=== PATIENT | male | born 1980 | race Caucasian/White ===

== ENCOUNTER 2018-10-30 18:16 | Inpatient (IN) | payer BC ==
[2018-10-30 18:16] VITALS: BMI 32.1
[2018-10-30] MEDS ORDERED: Magnesium Sulfate 2 GM in Sodium Chloride 0.9% 100 ML IVPB ONE (18:36)
[2018-10-30] MEDS ORDERED: Magnesium Sulfate 2 gm/50 ml 2 GM/50 ML BAG IV ONE (18:45)
[2018-10-30] MEDS: Albuterol-Ipratrop 3 mg / 0.5 (3 ml) UD IH SCH ×3 (18:45→19:49)
[2018-10-30 19:19] LABS: BASO # 0.04 K/mm3 (0.0-2.0); BASO % 0.5 % (0.0-3.0); EOS # 0.3 (0.0-0.7); EOS % 3.5 % (1.5-5.0); GRAN # 5.23 (1.4-6.5); GRAN % 64.6 % (50.0-68.0); HEMOGLOBIN 14.2 g/dL (14.0-18.0); LYMPH # 2.1 (1.2-3.4); LYMPH % 25.7 % (22.0-35.0); MEAN CORPUSCULAR HEMOGLOBIN 31.1 pg (25.0-35.0); MEAN PLATELET VOLUME 10.2 fl (7.0-11.0); MONO # 0.5 (0.1-0.6); MONO % 5.7 % (1.0-6.0); RBC 4.56 10^6/uL (3.5-6.1); RED CELL DISTRIBUTION WIDTH 12.5 % (11.5-14.5); WHITE BLOOD COUNT 8.1 10^3/uL (4.5-11.0)
[2018-10-30 19:22] LABS: ALB/GLOB RATIO 1.1 (1.1-1.8); ALBUMIN 4.6 g/dL (3.0-4.8); ALT/SGPT 81 U/L (7-56); AST/SGOT 65 U/L (17-59); BLOOD UREA NITROGEN 15 mg/dL (7-21); CALCIUM 9.9 mg/dL (8.4-10.5); GFR NON-AFRICAN AMERICAN > 60
[2018-10-30] MEDS ORDERED: cefTRIAXone 1 gm 1 GM/100 ML BAG IVPB STA (20:25)
[2018-10-30] MEDS ORDERED: Azithromycin 500MG/NS 250ml 500 MG/250 ML BAG IVPB STA (20:25)
[2018-10-30] MEDS ORDERED: Albuterol-Ipratrop 3 mg / 0.5 (3 ml) UD IH STA (20:50)
--- NOTE | 2018-10-30 20:56 | ED PDOC ---
Arrival/HPI - General Chief Complaint: Shortness Of Breath Time Seen by Provider: 10/30/18 18:23 Historian: Patient - History of Present Illness Narrative History of Present Illness (Text): 10/30/18 20:54 38 yo M w/ PMH of HTN, was a former smoker, currently vapes, is c/o cough, SOB and chest tightness. States that he completed a full course of tamiflu after being initially diagnosed with the flu, however he continued to have cough, he went back to [facility], where he was initially treated, an oupt CXR was done, which confirmed that he had pneumonia and was Rx levaquin, which he has been taking x 4 days without improvement. Today he felt significant SOB prompting ER visit. Denies any fevers, chills, recent travel, N/V. PMD none Past Medical History - Tetanus Immunization Tetanus Immunization: Unknown - Cardiac Hx Hypertension: Yes (wt and diet management) - Psychiatric Hx Depression: No Hx Emotional Abuse: No Hx Physical Abuse: No Hx Substance Use: No - Anesthesia Hx Anesthesia: No Hx Anesthesia Reactions: No Hx Malignant Hyperthermia: No - Suicidal Assessment Feels Threatened In Home Enviroment: No Family/Social History Family/Social History: No Known Family HX Smoking Status: Smoker Currrent Status Unknown Hx Alcohol Use: Yes Hx Substance Use: No Hx Substance Use Treatment: No Allergies/Home Meds Allergies/Adverse Reactions: Allergies No Known Allergies Allergy (Verified 10/15/14 17:15) Review of Systems - Review of Systems Constitutional: absent: Fatigue, Fevers Respiratory: SOB, Cough, Wheezing Cardiovascular: Chest Pain. absent: Palpitations Gastrointestinal: absent: Abdominal Pain, Diarrhea, Nausea, Vomiting Genitourinary Male: absent: Dysuria, Frequency Musculoskeletal: absent: Arthralgias, Back Pain Skin: absent: Rash, Skin Lesions Physical Exam Vital Signs Temp Pulse Resp BP Pulse Ox 10/30/18 19:20 97.6 F 80 18 147/82 100 10/30/18 18:22 19 10/30/18 18:16 98.2 F 76 18 153/92 H 100 Temperature: Afebrile Blood Pressure: Normal Pulse: Regular Respiratory Rate: Normal Appearance: Positive for: Well-Appearing, Non-Toxic, Other (+mild resp distress) Pain Distress: None Mental Status: Positive for: Alert and Oriented X 3 - Systems Exam Head: Present: Atraumatic, Normocephalic Pupils: Present: PERRL Extroacular Muscles: Present: EOMI Conjunctiva: Present: Normal Mouth: Present: Moist Mucous Membranes Neck: Present: Normal Range of Motion Respiratory/Chest: Present: Clear to Auscultation, Good Air Exchange, Respiratory Distress (+mild resp distress with mild labored breathing), Wheezes (+b/l inspiratory and expiratory wheezing), Rhonchi (+scattered rhonchi). No: Accessory Muscle Use Cardiovascular: Present: Regular Rate and Rhythm, Normal S1, S2. No: Murmurs Abdomen: No: Tenderness, Distention, Peritoneal Signs Back: Present: Normal Inspection Upper Extremity: Present: Normal Inspection. No: Cyanosis, Edema Lower Extremity: Present: Normal Inspection. No: Edema Neurological: Present: GCS=15, CN II-XII Intact, Speech Normal, Motor Func Grossly Intact, Normal Sensory Function Skin: Present: Warm, Dry, Normal Color. No: Rashes Psychiatric: Present: Alert, Oriented x 3, Normal Insight, Normal Concentration Medical Decision Making ED Course and Treatment: 10/30/18 20:57 Plan: -- Labs -- IV fluids -- EKG -- CXR -- Solumedrol IV / Mg IV -- Duoneb x3 -- Reassess and disposition CXR : +RLL infiltrate, as read by PA EKG: NSR at 88 bpm, (-) acute ST changes, as read by PA. Labs reviewed and within normal limits. On reevaluation, patient resting in bed comfortably, breathing is easy and unlabored. On exam, patient remains awake alert and oriented 3 in no acute distress. Neck is supple, lungs still with b/l expiratory wheezing, +tachycardic. Given another duoneb, CXR and labs d/w the patient. Diagnosis of pneumonia with failed outpatient treatment d/w the patient, advised that he will need to be admitted which he agrees with. Case d/w Dr. Bravo, agrees with plan, request Dr. Blackmon for ID consult. - Lab Interpretations Lab Results: 10/30/18 18:55 10/30/18 18:55 Lab Results 10/30/18 18:55: Sodium 140, Potassium 4.4, Chloride 102, Carbon Dioxide 27, Anion Gap 16, BUN 15, Creatinine 1.1, Est GFR ( Amer) > 60, Est GFR (Non- Af Amer) > 60, Random Glucose 99, Calcium 9.9, Magnesium 1.8, Total Bilirubin 0.5, AST 65 H, ALT 81 H, Alkaline Phosphatase 116, Total Protein 8.8 H, Albumin 4.6, Globulin 4.2, Albumin/Globulin Ratio 1.1 10/30/18 18:55: WBC 8.1, RBC 4.56, Hgb 14.2, Hct 40.6 L, MCV 89.0, MCH 31.1, MCHC 35.0, RDW 12.5, Plt Count 363, MPV 10.2, Gran % 64.6, Lymph % (Auto) 25.7, [place] % (Auto) 5.7, Eos % (Auto) 3.5, Baso % (Auto) 0.5, Gran # 5.23, Lymph # (Auto) 2.1, [place] # (Auto) 0.5, Eos # (Auto) 0.3, Baso # (Auto) 0.04 - RAD Interpretation Radiology Orders: 10/30/18 18:34 CHEST TWO VIEWS (PA/LAT) [RAD] Stat - Medication Orders Current Medication Orders: Albuterol/Ipratropium (Duoneb 3 Mg/0.5 Mg (3 Ml) Ud) 3 ml IH STAT STA Stop: 10/30/18 20:51 Ceftriaxone Sodium (Rocephin 1 Gram Ivpb) 1 gm in 100 mls @ 200 mls/hr IVPB STAT STA; Protocol Stop: 10/30/18 20:54 Azithromycin (Zithromax 500mg In Ns) 500 mg in 250 mls @ 167 mls/hr IVPB STAT STA; Protocol Stop: 10/30/18 21:54 Discontinued Medications Albuterol/Ipratropium (Duoneb 3 Mg/0.5 Mg (3 Ml) Ud) 3 ml IH Q15M [facility] Stop: 10/30/18 19:16 Last Admin: 10/30/18 19:49 Dose: 3 ml Magnesium Sulfate (Magnesium Sulfate 2 Gm/50 Ml Water) 2 gm in 50 mls @ 102 mls/hr IV ONCE ONE Stop: 10/30/18 19:14 Last Admin: 10/30/18 19:49 Dose: 102 mls/hr eMAR Start Stop Document 10/30/18 19:49 RG (Rec: 10/30/18 19:49 RG [id number]) Intravenous Solution Start Date 10/30/18 Start Time 19:49 Methylprednisolone (Solu-Medrol) 125 mg IVP STAT STA Stop: 10/30/18 18:35 Last Admin: 10/30/18 19:04 Dose: 125 mg IVP Administration Document 10/30/18 19:04 [email or web address] (Rec: 10/30/18 19:04 [email or web address] [id number]) Charges for Administration # of IVP Administrations 1 - PA / PROCESS WORKER / Resident Statement MD/DO has reviewed & agrees with the documentation as recorded. Disposition/Present on Arrival - Present on Arrival Any Indicators Present on Arrival: No History of DVT/PE: No History of Uncontrolled Diabetes: No Urinary Catheter: No History of Decub. Ulcer: No History Surgical Site Infection Following: None - Disposition Have Diagnosis and Disposition been Completed?: Yes Diagnosis: Pneumonia, Asthma Disposition: HOSPITALIZED Disposition Time: 20:30 Patient Plan: Admission Condition: STABLE
[2018-10-31] MEDS ORDERED: Albuterol-Ipratrop 3 mg / 0.5 (3 ml) UD IH ONE (07:18)
--- NOTE | 2018-10-31 09:26 | CARD ---
APPROVED REPORT Date of service: 10/30/2018 EKG Measurement Heart [id number] <Conclusion> Normal sinus rhythm Normal ECG
[2018-10-31] MEDS: Dextrose 5%/0.45% NS 1,000 ML IV SCH (10:52)
[2018-10-31] MEDS: cefTRIAXone 1 gm 1 GM/100 ML BAG IVPB SCH (10:53)
--- NOTE | 2018-10-31 11:34 | RAD ---
Date of service: 10/30/2018 HISTORY: Cough COMPARISON: 08/09/2018. TECHNIQUE: Chest PA and lateral FINDINGS: LUNGS: Right lower lobe infiltrate consistent with pneumonia. This was not apparent on the prior study. PLEURA: No significant pleural effusion identified. No pneumothorax apparent. CARDIOVASCULAR: No aortic atherosclerotic calcification present. Normal cardiac size. No pulmonary vascular congestion. OSSEOUS STRUCTURES: No significant abnormalities. VISUALIZED UPPER ABDOMEN: Normal. OTHER FINDINGS: None. IMPRESSION: Right lower lobe infiltrate likely acute pneumonia.
[2018-10-31] MEDS: Azithromycin 500MG/NS 250ml 500 MG/250 ML BAG IVPB SCH (12:28)
[2018-10-31] MEDS: Levalbuterol 0.63 MG/3 ML Inhal Soln UD IH SCH ×2 (13:09→21:00)
[2018-10-31] MEDS: Simethicone 80 mg Chewtab PO SCH ×2 (13:47→21:57)
--- NOTE | 2018-10-31 17:17 | US ---
Date of service: 10/31/2018 HISTORY: Gallbladder polyp COMPARISON: 05/06/2012 TECHNIQUE: Sonographic evaluation of the abdomen. FINDINGS: LIVER: Measures 14.2 cm. Hepatopedal blood flow. Fatty infiltration manifest ultrasonographically as increased echogenicity of the liver parenchyma. No mass. No intrahepatic bile duct dilatation. GALLBLADDER: Unremarkable. No gallstones. COMMON BILE DUCT: Measures 4.2 mm. No stones. No dilatation. PANCREAS: Obscured by overlying bowel gas. Non diagnostic assessment of the pancreas RIGHT KIDNEY: Measures 5.4 x 10.3cm. Normal echogenicity. No calculus, mass, or hydronephrosis. LEFT KIDNEY: Measures 6.2 x 11.0cm. Normal echogenicity. No calculus, mass, or hydronephrosis. SPLEEN: Normal in size and contour. No mass. AORTA: No aneurysmal dilatation. IVC: Unremarkable. OTHER FINDINGS: None. IMPRESSION: Unremarkable abdominal sonogram.No significant interval change compared to the prior examination(s).
--- NOTE | 2018-10-31 17:21 | CP.PCM.CON ---
History of Present Illness - History of Present Illness History of Present Illness: Infectious Disease Consultation: October 31, 2018 38 yo male with PMHx of HTN presenting with cough and SOB as well as chest tightness. The patient recently completed Tamiflu course and had taken 4 days of Levaquin. There is no leukocytosis. He has been afebrile. Chest X-ray in the right lower lobe likely pneumonia. PMHx: HTN PSHx: none given Allergies: NKDA Social Hx: No illicit drug use Positive tobacco and EtOH use Active Medications Acetaminophen (Tylenol 325mg Tab) 650 mg PO Q6H PRN PRN Reason: Fever >100.4 F Guaifenesin/Dextromethorphan (Robitussin Dm) 10 ml PO Q4H PRN PRN Reason: Cough Dextrose/Sodium Chloride (Dextrose 5%/0.45% Ns 1000 Ml) 1,000 mls @ 100 mls/hr IV .Q10H [facility] Last Admin: 10/31/18 10:52 Dose: 100 mls/hr Ceftriaxone Sodium (Rocephin 1 Gram Ivpb) 1 gm in 100 mls @ 100 mls/hr IVPB DAILY [facility]; Protocol Last Admin: 10/31/18 10:53 Dose: 100 mls/hr Azithromycin (Zithromax 500mg In Ns) 500 mg in 250 mls @ 167 mls/hr IVPB DAILY [facility]; Protocol Last Admin: 10/31/18 12:28 Dose: 167 mls/hr Levalbuterol HCl (Xopenex) 0.63 mg IH TIDRESP [facility] Last Admin: 10/31/18 13:09 Dose: 0.63 mg Methylprednisolone (Solu-Medrol) 60 mg IVP Q12 [facility] Ondansetron HCl (Zofran Inj) 4 mg IVP Q6H PRN PRN Reason: Nausea/Vomiting Simethicone (Mylicon Chew Tab) 120 mg PO Q8 [facility] Last Admin: 10/31/18 13:47 Dose: 120 mg Family Hx: none given ROS: No fevers, chills, nausea, vomiting, diarrhea, headaches, dizziness, chest pain, abdominal pain, melena, hematuria, hematemesis, hematochezia, depression, anxiety Patient with SOB, cough Past Patient History - Tetanus Immunizations Tetanus Immunization: Unknown - Past Social History Smoking Status: Smoker Currrent Status Unknown - CARDIAC Hx Hypertension: Yes (wt and diet management) - MUSCULOSKELETAL/RHEUMATOLOGICAL Hx Falls: No - PSYCHIATRIC Hx Depression: No Hx Emotional Abuse: No Hx Physical Abuse: No Hx Substance Use: No - SURGICAL HISTORY Hx Cardiac Catheterization: No Hx Coronary Stent: No - ANESTHESIA Hx Anesthesia: No Hx Anesthesia Reactions: No Hx Malignant Hyperthermia: No Meds Allergies/Adverse Reactions: Allergies Allergy/AdvReac Type Severity Reaction Status Date / Time No Known Allergies Allergy Verified 10/15/14 17:15 - Medications Medications: Current Medications Acetaminophen (Tylenol 325mg Tab) 650 mg PO Q6H PRN PRN Reason: Fever >100.4 F Guaifenesin/Dextromethorphan (Robitussin Dm) 10 ml PO Q4H PRN PRN Reason: Cough Dextrose/Sodium Chloride (Dextrose 5%/0.45% Ns 1000 Ml) 1,000 mls @ 100 mls/hr IV .Q10H [facility] Last Admin: 10/31/18 10:52 Dose: 100 mls/hr Ceftriaxone Sodium (Rocephin 1 Gram Ivpb) 1 gm in 100 mls @ 100 mls/hr IVPB DAILY [facility]; Protocol Last Admin: 10/31/18 10:53 Dose: 100 mls/hr Azithromycin (Zithromax 500mg In Ns) 500 mg in 250 mls @ 167 mls/hr IVPB DAILY [facility]; Protocol Last Admin: 10/31/18 12:28 Dose: 167 mls/hr Levalbuterol HCl (Xopenex) 0.63 mg IH TIDRESP [facility] Last Admin: 10/31/18 13:09 Dose: 0.63 mg Methylprednisolone (Solu-Medrol) 60 mg IVP Q12 [facility] Ondansetron HCl (Zofran Inj) 4 mg IVP Q6H PRN PRN Reason: Nausea/Vomiting Simethicone (Mylicon Chew Tab) 120 mg PO Q8 [facility] Last Admin: 10/31/18 13:47 Dose: 120 mg Physical Exam - Constitutional Appears: Non-toxic, No Acute Distress - Head Exam Head Exam: ATRAUMATIC, NORMOCEPHALIC - Eye Exam Eye Exam: EOMI, PERRL Pupil Exam: NORMAL ACCOMODATION, PERRL - ENT Exam ENT Exam: Mucous Membranes Moist, Normal External Ear Exam, TM's Normal Bilaterally - Neck Exam Neck exam: Positive for: Full Rom, Normal Inspection - Respiratory Exam Respiratory Exam: Decreased Breath Sounds, Rhonchi, Wheezes, NORMAL BREATHING PATTERN. absent: Rales - Cardiovascular Exam Cardiovascular Exam: REGULAR RHYTHM, RRR, +S1, +S2 - GI/Abdominal Exam GI & Abdominal Exam: Normal Bowel Sounds, Soft. absent: Distended, Tenderness - Extremities Exam Extremities exam: Positive for: full ROM, normal inspection - Neurological Exam Neurological exam: Alert, CN II-XII Intact, Oriented x3 - Psychiatric Exam Psychiatric exam: Normal Affect, Normal Mood - Skin Skin Exam: Intact, Normal Color Results - Vital Signs Recent Vital Signs: Last Vital Signs Temp 97.9 F 10/31/18 14:00 Pulse 81 10/31/18 14:00 Resp 18 10/31/18 14:00 BP 141/89 10/31/18 14:00 Pulse Ox 95 10/31/18 14:00 - Labs Result Diagrams: 10/30/18 18:55 10/30/18 18:55 Labs: Laboratory Results - last 24 hr 10/30/18 10/30/18 18:55 18:55 WBC 8.1 RBC 4.56 Hgb 14.2 Hct 40.6 L MCV 89.0 MCH 31.1 MCHC 35.0 RDW 12.5 Plt Count 363 MPV 10.2 Gran % 64.6 Lymph % (Auto) 25.7 [place] % (Auto) 5.7 Eos % (Auto) 3.5 Baso % (Auto) 0.5 Gran # 5.23 Lymph # (Auto) 2.1 [place] # (Auto) 0.5 Eos # (Auto) 0.3 Baso # (Auto) 0.04 Sodium 140 Potassium 4.4 Chloride 102 Carbon Dioxide 27 Anion Gap 16 BUN 15 Creatinine 1.1 Est GFR ( Amer) > 60 Est GFR (Non-Af Amer) > 60 Random Glucose 99 Calcium 9.9 Magnesium 1.8 Total Bilirubin 0.5 AST 65 H ALT 81 H Alkaline Phosphatase 116 Total Protein 8.8 H Albumin 4.6 Globulin 4.2 Albumin/Globulin Ratio 1.1 Assessment & Plan - Assessment and Plan (Free Text) Assessment: 38 yo male with recent treatment for Influenza with Tamiflu and was on Levaquin for pneumonia (day 4 of treatment). Came to [facility] for worsening cough and SOB. Started on Rocephin and Azithromycin for treatment. Check procalcitonin values. Supportive care. Chest X-ray reviewed showing a right lower lobe pneumonia. Thank you for allowing me to participate in the care of the patient, we will follow with you.
[2018-10-31] MEDS: guaiFENesin DM 200 mg-20 mg/10 ml UD PO PRN (21:57)
[2018-11-01] MEDS: Levalbuterol 0.63 MG/3 ML Inhal Soln UD IH PRN (03:41)
[2018-11-01] MEDS: guaiFENesin DM 200 mg-20 mg/10 ml UD PO PRN ×2 (05:24→09:45)
[2018-11-01] MEDS: Simethicone 80 mg Chewtab PO SCH ×3 (05:24→21:08)
[2018-11-01] MEDS: Levalbuterol 0.63 MG/3 ML Inhal Soln UD IH SCH ×3 (07:48→21:50)
[2018-11-01] MEDS: cefTRIAXone 1 gm 1 GM/100 ML BAG IVPB SCH (09:46)
[2018-11-01] MEDS: Azithromycin 500MG/NS 250ml 500 MG/250 ML BAG IVPB SCH (11:18)
[2018-11-01] MEDS: Dextrose 5%/0.45% NS 1,000 ML IV SCH (13:09)
--- NOTE | 2018-11-01 13:17 | CP.PCM.PN ---
Subjective - Date & Time of Evaluation Date of Evaluation: 11/01/18 Time of Evaluation: 12:15 - Subjective Subjective: Infectious Disease Follow Up: November 01, 2018 38 yo male with PMHx of HTN presenting with cough and SOB as well as chest tightness. The patient recently completed Tamiflu course and had taken 4 days of Levaquin. There is no leukocytosis. He has been afebrile. Chest X-ray in the right lower lobe likely pneumonia. Feeling slightly better. Objective - Vital Signs/Intake and Output Vital Signs (last 24 hours): Temp Pulse Resp BP Pulse Ox 98.5 F 76 20 133/81 95 11/01/18 07:00 11/01/18 07:00 11/01/18 07:00 11/01/18 07:00 11/01/18 07:00 Intake and Output: 11/01/18 11/01/18 06:59 18:59 Intake Total 360 Balance 360 - Medications Medications: Current Medications Acetaminophen (Tylenol 325mg Tab) 650 mg PO Q6H PRN PRN Reason: Fever >100.4 F Guaifenesin/Dextromethorphan (Robitussin Dm) 10 ml PO Q4H PRN PRN Reason: Cough Last Admin: 11/01/18 09:45 Dose: 10 ml Dextrose/Sodium Chloride (Dextrose 5%/0.45% Ns 1000 Ml) 1,000 mls @ 100 mls/hr IV .Q10H [facility] Last Admin: 11/01/18 13:09 Dose: 100 mls/hr Ceftriaxone Sodium (Rocephin 1 Gram Ivpb) 1 gm in 100 mls @ 100 mls/hr IVPB DAILY [facility]; Protocol Last Admin: 11/01/18 09:46 Dose: 100 mls/hr Azithromycin (Zithromax 500mg In Ns) 500 mg in 250 mls @ 167 mls/hr IVPB DAILY [facility]; Protocol Last Admin: 11/01/18 11:18 Dose: 167 mls/hr Levalbuterol HCl (Xopenex) 0.63 mg IH TIDRESP [facility] Last Admin: 11/01/18 07:48 Dose: 0.63 mg Levalbuterol HCl (Xopenex) 0.63 mg IH [id number] PRN PRN Reason: Shortness of Breath Last Admin: 11/01/18 03:41 Dose: 0.63 mg Methylprednisolone (Solu-Medrol) 60 mg IVP Q6 [facility] Ondansetron HCl (Zofran Inj) 4 mg IVP Q6H PRN PRN Reason: Nausea/Vomiting Polyethylene Glycol (Miralax) 17 gm PO DAILY [facility] Simethicone (Mylicon Chew Tab) 120 mg PO Q8 [facility] Last Admin: 11/01/18 05:24 Dose: 120 mg - Labs Labs: 10/30/18 18:55 10/30/18 18:55 - Constitutional Appears: Non-toxic, No Acute Distress - Head Exam Head Exam: ATRAUMATIC, NORMOCEPHALIC - Eye Exam Eye Exam: EOMI, PERRL Pupil Exam: NORMAL ACCOMODATION, PERRL - ENT Exam ENT Exam: Mucous Membranes Moist, Normal External Ear Exam, TM's Normal Bilaterally - Neck Exam Neck Exam: Full ROM, Normal Inspection - Respiratory Exam Respiratory Exam: Clear to Ausculation Bilateral, NORMAL BREATHING PATTERN. absent: Rales, Rhonchi, Wheezes - Cardiovascular Exam Cardiovascular Exam: REGULAR RHYTHM, RRR, +S1, +S2 - GI/Abdominal Exam GI & Abdominal Exam: Soft, Normal Bowel Sounds. absent: Distended, Tenderness - Extremities Exam Extremities Exam: Full ROM, Normal Inspection - Neurological Exam Neurological Exam: Alert, Awake, CN II-XII Intact, Oriented x3 - Psychiatric Exam Psychiatric exam: Normal Affect, Normal Mood - Skin Skin Exam: Intact, Normal Color Assessment and Plan - Assessment and Plan (Free Text) Assessment: 38 yo male with recent treatment for Influenza with Tamiflu and was on Levaquin for pneumonia (day 4 of treatment). Came to [facility] for worsening cough and SOB. Started on Rocephin and Azithromycin for treatment. Check procalcitonin values. Supportive care. Chest X-ray reviewed showing a right lower lobe pneumonia. Patient feels slightly better. Continue on Rocephin and Azithromycin. Thank you for allowing me to participate in the care of the patient, we will follow with you.
[2018-11-01] MEDS: POLYETHYLENE GLYCOL 3350 17 GM/Dose PACKET PO SCH (13:22)
[2018-11-01 18:04] LABS: HEPATITIS B SURFACE AG Negative (NEGATIVE)
[2018-11-01 18:10] LABS: HEPATITIS A IGM NEGATIVE (NEGATIVE); HEPATITIS B CORE AB NEGATIVE (NEGATIVE)
[2018-11-01 18:21] LABS: HEPATITIS C ANTIBODY NEGATIVE (NEGATIVE)
--- NOTE | 2018-11-01 20:21 | HP ---
DATE OF EXAM: 11/01/2018 HISTORY OF PRESENT ILLNESS: This 38-year-old male was examined at his bedside in the presence of his and this case was reviewed in detail with nurse, Mima Quiñonez, registered nurse. The patient presented to the [facility] ER with shortness of breath. He had recently been in an outpatient urgent care center twice last week. Initially, he presented and was given a prescription for oral Tamiflu and then was given 4 days of Levaquin. He states that on his outpatient chest x-ray, he was noted to have a right lower lung pneumonia and was advised by the Urgent Care Center if he had any fever or worsening shortness of breath, to present to the local emergency room. This he did on the evening of 10/30/2018 where on x-ray he was noted to have a right lower lung infiltrate and was also in respiratory distress. While in the emergency room, he was given dual nebulizer treatment with some improvement in shortness of breath and was admitted for further evaluation of the above. ALLERGIES: The patient denies any allergies to medication. PAST MEDICAL HISTORY: Significant for obesity, history of fatty liver, chronic hypertension, diet and weight reduction controlled with no outpatient medications other than recent Levaquin and Tamiflu. He also has a history of childhood asthma. FAMILY HISTORY: Noncontributory. 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 He states he is a social drinker, a cigarette smoker and non IV drug misuser. REVIEW OF SYSTEMS: CONSTITUTIONAL REVIEW: He denied fever or chills. HEAD REVIEW: No headache or seizure. EYE REVIEW: No change in visual acuity. EAR REVIEW: No hearing loss. THROAT REVIEW: No swallowing difficulty. NECK REVIEW: No stiffness. CARDIAC REVIEW: No chest pain or palpitation. PULMONARY: He does have cough with audible wheezing and less shortness of breath this morning. Denied any hemoptysis. : Denied dysuria. SKIN: No rash. VASCULAR: No claudication. PSYCHOLOGICAL: No anxiety. NEUROLOGICAL: No knowledge of stroke. PHYSICAL EXAMINATION VITAL SIGNS: At the time of my interview, temperature was 98.0, respirations 20, pulse 96 and blood pressure 131/81 with a pulse ox of 99%. HEENT: Normocephalic, atraumatic. Eyes: No icterus. Ears: Clear. Throat: Noninjected. NECK: Supple. CARDIOPULMONARY: Regular S1, S2. No pathological rubs, murmurs or gallops. LUNGS: Had rhonchi and wheezing at the right posterior lung base. No rales were appreciated. ABDOMEN: Obese. EXTREMITIES: No edema. SKIN: Without rash. NEUROLOGICAL: Intact. PSYCHOLOGICAL: Alert. VASCULAR: Legs warm to touch. LABORATORY DATA: White count 8100, hemoglobin 14.2, hematocrit 40.6, platelets 363,000. Sodium 140, K 4.4, chloride 102, bicarb 27, BUN 15, creatinine 1.1, random blood sugar 99. Magnesium 1.8. Bilirubin 0.5, AST 65, ALT 81, alk phos 116. Chest x-ray was reviewed. It showed right lower lung pneumonia. EKG was reviewed. It showed normal sinus rhythm. IMPRESSION: This is a 38-year-old male with community-acquired pneumonia, obesity, elevated liver function testing, rule out fatty liver, also with history of diet-controlled hypertension and now history of asthmatic bronchitis. PLAN: My plans are to maintain this patient on Zithromax 500 mg IV every 24, D5 0.45 saline at 100 mL/hour, Simethicone 120 mg p.o. every 8 hours p.r.n. gas, Robitussin 10 mL p.o. every 4 hours p.r.n. cough, Rocephin 1 g IV every 24, Solu-Medrol 60 mg IV every 12, Xopenex inhalational therapy 0.63 mg t.i.d., Tylenol 650 p.o. every 6 hours p.r.n. pain or temperature greater than 101 and Zofran 4 mg IV every 6 hours p.r.n. nausea and vomiting. He will have a procalcitonin level checked. Bblood cultures are pending. Hepatitis profile will be requested. He will continue on a heart-healthy bland diet and based on clinical progress, additional diagnostic workup and testing will be entertained. Greater than 75 minutes was spent in the care management, review of labs, orders and x-rays and discussion of this patient with himself, his and nursing. All questions were answered. Pricilla Lawrence, MD [facility] # [id number] MTDD
[2018-11-02] MEDS: Dextrose 5%/0.45% NS 1,000 ML IV SCH ×3 (01:20→21:34)
[2018-11-02] MEDS: guaiFENesin DM 200 mg-20 mg/10 ml UD PO PRN ×2 (01:33→23:46)
[2018-11-02] MEDS: Simethicone 80 mg Chewtab PO SCH ×3 (05:55→21:37)
[2018-11-02] MEDS: Levalbuterol 0.63 MG/3 ML Inhal Soln UD IH SCH ×3 (07:35→21:05)
[2018-11-02] MEDS: POLYETHYLENE GLYCOL 3350 17 GM/Dose PACKET PO SCH (09:55)
[2018-11-02] MEDS: cefTRIAXone 1 gm 1 GM/100 ML BAG IVPB SCH (09:55)
[2018-11-02] MEDS: Azithromycin 500MG/NS 250ml 500 MG/250 ML BAG IVPB SCH (09:55)
--- NOTE | 2018-11-02 12:35 | CP.PCM.PN ---
Subjective - Date & Time of Evaluation Date of Evaluation: 11/02/18 Time of Evaluation: 11:30 - Subjective Subjective: Infectious Disease Follow Up: November 02, 2018 38 yo male with PMHx of HTN presenting with cough and SOB as well as chest tightness. The patient recently completed Tamiflu course and had taken 4 days of Levaquin. There is no leukocytosis. He has been afebrile. Chest X-ray in the right lower lobe likely pneumonia. Feeling only slightly better. Objective - Vital Signs/Intake and Output Vital Signs (last 24 hours): Temp Pulse Resp BP Pulse Ox 98.1 F 81 20 137/81 98 11/02/18 06:00 11/02/18 06:00 11/02/18 06:00 11/02/18 06:00 11/02/18 06:00 - Medications Medications: Current Medications Acetaminophen (Tylenol 325mg Tab) 650 mg PO Q6H PRN PRN Reason: Fever >100.4 F Benzonatate (Tessalon Perles) 100 mg PO TID [facility] Last Admin: 11/02/18 09:55 Dose: 100 mg Guaifenesin/Dextromethorphan (Robitussin Dm) 10 ml PO Q4H PRN PRN Reason: Cough Last Admin: 11/02/18 01:33 Dose: 10 ml Dextrose/Sodium Chloride (Dextrose 5%/0.45% Ns 1000 Ml) 1,000 mls @ 100 mls/hr IV .Q10H [facility] Last Admin: 11/02/18 09:55 Dose: 100 mls/hr Ceftriaxone Sodium (Rocephin 1 Gram Ivpb) 1 gm in 100 mls @ 100 mls/hr IVPB DAILY [facility]; Protocol Last Admin: 11/02/18 09:55 Dose: 100 mls/hr Azithromycin (Zithromax 500mg In Ns) 500 mg in 250 mls @ 167 mls/hr IVPB DAILY [facility]; Protocol Last Admin: 11/02/18 09:55 Dose: 167 mls/hr Levalbuterol HCl (Xopenex) 0.63 mg IH TIDRESP [facility] Last Admin: 11/02/18 07:35 Dose: 0.63 mg Levalbuterol HCl (Xopenex) 0.63 mg IH [id number] PRN PRN Reason: Shortness of Breath Last Admin: 11/01/18 03:41 Dose: 0.63 mg Methylprednisolone (Solu-Medrol) 60 mg IVP Q6 [facility] Last Admin: 11/02/18 05:55 Dose: 60 mg Ondansetron HCl (Zofran Inj) 4 mg IVP Q6H PRN PRN Reason: Nausea/Vomiting Polyethylene Glycol (Miralax) 17 gm PO DAILY [facility] Last Admin: 11/02/18 09:55 Dose: 17 gm Simethicone (Mylicon Chew Tab) 120 mg PO Q8 [facility] Last Admin: 11/02/18 05:55 Dose: 120 mg - Labs Labs: 10/30/18 18:55 10/30/18 18:55 - Constitutional Appears: Non-toxic, No Acute Distress - Head Exam Head Exam: ATRAUMATIC, NORMOCEPHALIC - Eye Exam Eye Exam: EOMI, PERRL Pupil Exam: NORMAL ACCOMODATION, PERRL - ENT Exam ENT Exam: Mucous Membranes Moist, Normal External Ear Exam, TM's Normal Bilaterally - Neck Exam Neck Exam: Full ROM, Normal Inspection - Respiratory Exam Respiratory Exam: Decreased Breath Sounds, NORMAL BREATHING PATTERN. absent: Rales, Rhonchi, Wheezes - Cardiovascular Exam Cardiovascular Exam: REGULAR RHYTHM, RRR, +S1, +S2 - GI/Abdominal Exam GI & Abdominal Exam: Soft, Normal Bowel Sounds. absent: Distended, Tenderness - Extremities Exam Extremities Exam: Full ROM, Normal Inspection - Neurological Exam Neurological Exam: Alert, Awake, CN II-XII Intact, Oriented x3 - Psychiatric Exam Psychiatric exam: Normal Affect, Normal Mood - Skin Skin Exam: Intact, Normal Color Assessment and Plan - Assessment and Plan (Free Text) Assessment: 38 yo male with recent treatment for Influenza with Tamiflu and was on Levaquin for pneumonia (day 4 of treatment). Came to [facility] for worsening cough and SOB. Started on Rocephin and Azithromycin for treatment. Check procalcitonin values. Supportive care. Chest X-ray reviewed showing a right lower lobe pneumonia. Patient feels only slightly better. Continue on Rocephin and Azithromycin. Of note, the procalcitonin was less than 0.05 which argues against a pneumonia. A pulmonary evaluation may be helpful. Thank you for allowing me to participate in the care of the patient, we will follow with you.
[2018-11-02] MEDS ORDERED: Potassium Chloride 20 mEq ER Tab PO ONE (14:08)
[2018-11-02] MEDS: MethylPREDNISolone 40 mg Vial IVP SCH ×2 (18:42→23:46)
[2018-11-03] MEDS: Simethicone 80 mg Chewtab PO SCH ×3 (06:03→22:56)
[2018-11-03] MEDS: MethylPREDNISolone 40 mg Vial IVP SCH ×3 (06:03→22:56)
[2018-11-03] MEDS: guaiFENesin DM 200 mg-20 mg/10 ml UD PO PRN ×2 (06:03→09:39)
[2018-11-03] MEDS: Levalbuterol 0.63 MG/3 ML Inhal Soln UD IH PRN (06:05)
[2018-11-03 06:46] LABS: BLOOD UREA NITROGEN 17 mg/dL (7-21); CALCIUM 9.4 mg/dL (8.4-10.5); GFR NON-AFRICAN AMERICAN > 60
[2018-11-03] MEDS: Levalbuterol 0.63 MG/3 ML Inhal Soln UD IH SCH ×3 (07:27→21:04)
[2018-11-03] MEDS: Azithromycin 500MG/NS 250ml 500 MG/250 ML BAG IVPB SCH (09:33)
[2018-11-03] MEDS: cefTRIAXone 1 gm 1 GM/100 ML BAG IVPB SCH ×2 (09:33→12:13)
[2018-11-03] MEDS: Dextrose 5%/0.45% NS 1,000 ML IV SCH (09:36)
[2018-11-03] MEDS: POLYETHYLENE GLYCOL 3350 17 GM/Dose PACKET PO SCH (10:31)
[2018-11-03] MEDS ORDERED: Dextrose 5%/0.45% NS 1,000 ML IV SCH (11:37)
[2018-11-03] MEDS ORDERED: Azithromycin 500 MG in Sodium Chloride 0.9% 250 ML IV SCH (11:45)
[2018-11-03] MEDS ORDERED: Azithromycin 500MG/NS 250ml 500 MG/250 ML BAG IVPB SCH (12:03)
[2018-11-03] MEDS: Pantoprazole 40 mg EC Tab PO SCH (12:18)
--- NOTE | 2018-11-03 12:53 | PN ---
DATE OF EXAM: 11/01/2018 SUBJECTIVE: This 38-year-old male was examined at his bedside. This case was reviewed with his present at the bedside and nurse, Ese Jones registered nurse. The patient remains weak and deconditioned, coughing and actively wheezing. He was seen by Dr. Yung Blackmon from Infectious Disease, who concurs with IV antibiotics including IV Rocephin and Zithromax and the patient is receiving inhalational therapy with Xopenex and I have started IV steroid treatment as well. PHYSICAL EXAMINATION: VITAL SIGNS: Temperature was 98, respirations 20, pulse 96 and blood pressure 131/81 with a pulse ox of 99% on 2 liters nasal O2. HEENT: Head: Normocephalic, atraumatic. Eyes: No icterus. Ears: Clear. Throat: Noninjected. NECK: Supple. HEART: S1, S2. LUNGS: With rhonchi and wheezing at the right posterior lung base. ABDOMEN: Obese. EXTREMITIES: No edema. SKIN: Without rash. NEUROLOGICAL: Intact. PSYCHOLOGICAL: Alert. VASCULAR: Legs warm to touch. LABORATORY DATA: White count 8100, hemoglobin 14.2, hematocrit 40.6, platelets 363,000. Sodium 140, K 4.4, chloride 102, bicarb 27, BUN 15, creatinine 1.1, random blood sugar 99. Chest x-ray was reviewed. It shows right lower lung pneumonia. Hepatitis A,B,C serologies are negative. Abdominal ultrasound was reviewed. It shows fatty infiltration of his liver. No masses and no intrahepatic bile duct dilatation. The gallbladder was unremarkable, there were no gallstones. IMPRESSION: A 38-year-old male with right lower lung community-acquired pneumonia and comorbidities of obesity, history of chronic hypertension, history of asthmatic bronchitis, now with evidence of elevated liver function testing in the setting of hepatic steatosis with exacerbation of chronic obstructive pulmonary disease. PLAN: The plan is to continue IV D5W 0.45 saline at 100 mL/hour, MiraLax 17 g p.o. daily, simethicone 120 mg p.o. every 8 hours p.r.n. gas, Robitussin DM 10 mL p.o. every four hours p.r.n. cough. I will increase Solu-Medrol to 60 mg IV every 6 hours. He will continue with Xopenex inhalational therapy 0.63 mg t.i.d. and every 6 hours p.r.n. with Zofran 4 mg IV every 6 hours p.r.n. nausea and vomiting. He is encouraged to do into incentive spirometry. He continues on heart-healthy diet. He was encouraged to ambulate with assistance and based on clinical progress, additional diagnostic workup will be entertained. All of the above was discussed for greater than 35 minutes with the patient and at bedside. The case was reviewed with his nurse, Ese Jnoes, all questions were answered. Pricilla Bravo MD MTDD
--- NOTE | 2018-11-03 13:15 | PN ---
DATE: 11/02/2018 SUBJECTIVE: This 38-year-old male was examined on the medical lan at the [facility] on the morning of 11/02/2018. Present for this interview was his and this case was reviewed in detail with nurse Tracey Campbell registered nurse. The patient states that he still has a productive cough with greenish-yellow sputum, but denied any fever, chills, chest pain or shortness of breath. He has noted some improvement in his respiratory symptoms with the addition of Solu-Medrol 60 mg IV every 6 hours. PHYSICAL EXAMINATION: VITAL SIGNS: Temperature was 98.1, respirations 20, pulse 81, blood pressure 137/81, pulse ox 98% on room air. HEENT: Head: Normocephalic, atraumatic. Eyes: No icterus. Ears: Clear. Throat: Noninjected. NECK: Supple. HEART: S1, S2. LUNGS: With rhonchi and wheezing in the right posterior lung field. ABDOMEN: Soft. EXTREMITIES: No edema. SKIN: Without rash. NEUROLOGICAL: Intact. PSYCHOLOGICAL: Alert. VASCULAR: Legs warm to touch. IMPRESSION: This is a 38-year-old male with right lower lung pneumonia - community acquired, history of asthmatic bronchitis, history of hypertension, previously diet and weight reduction controlled, now with complaints of fluid retention on IV fluids and IV steroids for exacerbation of chronic obstructive pulmonary disease. PLAN: My plan is discussed with family, will be to continue IV fluids. He is ordered to have Lasix 20 mg IV x1 dose, K-Dur 20 mEq p.o. x1 dose and he will continue on MiraLax 17 g p.o. daily, simethicone 120 mg p.o. every 8 hours p.r.n. gas, Robitussin 10 mL p.o. every 4 hours p.r.n. cough, Solu-Medrol will be decreased to 40 mg IV every 6 hours. He will be ordered to have Tessalon Perles 100 mg p.o. t.i.d., Xopenex inhalational therapy t.i.d. and Zofran 4 mg IV every 6 hours p.r.n. nausea and vomiting. Laboratories will be ordered for the morning. He is continuing on IV Rocephin and IV Zithromax and based on clinical progress, additional diagnostic workup will be entertained. All of the above was reviewed in detail with the patient, and nursing. All questions were answered. Pricilla Bravo MD
--- NOTE | 2018-11-03 13:40 | PN ---
DATE: 11/03/2018 SUBJECTIVE: This 38-year-old male remains hospitalized at the on 11/03/2018. At present he is complaining of peptic ulcer disease with gastroesophageal reflux disease and requesting a proton-pump claudia. He is ambulating with his IV fluid pole and denying any hemoptysis, fever or chills. PHYSICAL EXAMINATION: VITAL SIGNS: Temperature was 98.4, respirations 20, pulse 74, blood pressure 146/93 and pulse ox 95% room air. GENERAL: He still has a productive cough and is slightly improved with oral Tessalon Perles. HEENT: Head: Normocephalic, atraumatic. Eyes: No icterus. Ears: Clear. Throat: Noninjected. NECK: Supple. HEART: S1, S2. LUNGS: With rhonchi at the right base of his lung, occasional wheezing, expiratory rhonchi appreciated. ABDOMEN: Obese. EXTREMITIES: No edema. SKIN: Without rash. NEUROLOGICAL: Intact. PSYCHOLOGICAL: Alert. VASCULAR: Legs warm to touch. LABORATORY DATA: Sodium 139, K 4.6, chloride 103, bicarb 29, BUN 17, creatinine 0.9, random blood sugar 144, calcium 9.4. Procalcitonin level less than 0.05. Hepatitis A, B, C serology negative. IMPRESSION: A 38-year-old male admitted with right lower lung pneumonia, community-acquired, exacerbation of chronic obstructive pulmonary disease with asthmatic bronchitis and comorbidities of obesity, hypertension, obstipation and chronic cough. PLAN: The plan at present is to decrease D5 0.45 saline to 40 mL/hour. He will continue on MiraLax, Mylicon, Robitussin, decrease Solu-Medrol to 40 mg IV every 8 hours. I have reviewed his IV Rocephin and IV Zithromax orders and he will receive one dose of IV Lasix with oral potassium for hypertension in the setting of IV fluid replacement. All of the above was discussed with the patient and the patient will be scheduled for a basic metabolic panel and hemoglobin/hematocrit in the a.m. Greater than 35 minutes was spent in the care of this patient today. All questions were answered. Pricilla Bravo MD [facility] # [id number]
--- NOTE | 2018-11-03 19:17 | CP.PCM.PN ---
Subjective - Date & Time of Evaluation Date of Evaluation: 11/03/18 Time of Evaluation: 16:30 - Subjective Subjective: Infectious Disease Follow Up: November 03, 2018 38 yo male with PMHx of HTN presenting with cough and SOB as well as chest tightness. The patient recently completed Tamiflu course and had taken 4 days of Levaquin. There is no leukocytosis. He has been afebrile. Chest X-ray in the right lower lobe likely pneumonia. Feeling better. Ambulating without issues. Supportive care. Objective - Vital Signs/Intake and Output Vital Signs (last 24 hours): Temp Pulse Resp BP Pulse Ox 97.8 F 71 20 130/89 95 11/03/18 14:00 11/03/18 14:00 11/03/18 14:00 11/03/18 14:00 11/03/18 14:00 - Medications Medications: Current Medications Acetaminophen (Tylenol 325mg Tab) 650 mg PO Q6H PRN PRN Reason: Fever >100.4 F Benzonatate (Tessalon Perles) 100 mg PO TID [facility] Last Admin: 11/03/18 18:40 Dose: 100 mg Guaifenesin/Dextromethorphan (Robitussin Dm) 10 ml PO Q4H PRN PRN Reason: Cough Last Admin: 11/03/18 09:39 Dose: 10 ml Ceftriaxone Sodium (Rocephin 1 Gram Ivpb) 1 gm in 100 mls @ 100 mls/hr IVPB DAILY [facility]; Protocol Last Admin: 11/03/18 12:13 Dose: Not Given Dextrose/Sodium Chloride (Dextrose 5%/0.45% Ns 1000 Ml) 1,000 mls @ 40 mls/hr IV .Q24H [facility] Last Admin: 11/03/18 04:42 Dose: 40 mls/hr Azithromycin (Zithromax 500mg In Ns) 500 mg in 250 mls @ 250 mls/hr IVPB DAILY [facility]; Protocol Levalbuterol HCl (Xopenex) 0.63 mg IH TIDRESP [facility] Last Admin: 11/03/18 13:32 Dose: 0.63 mg Levalbuterol HCl (Xopenex) 0.63 mg IH [id number] PRN PRN Reason: Shortness of Breath Last Admin: 11/03/18 06:05 Dose: 0.63 mg Methylprednisolone (Solu-Medrol) 40 mg IVP Q8H [facility] Last Admin: 11/03/18 12:17 Dose: 40 mg Ondansetron HCl (Zofran Inj) 4 mg IVP Q6H PRN PRN Reason: Nausea/Vomiting Pantoprazole Sodium (Protonix Ec Tab) 40 mg PO ACB [facility] Last Admin: 11/03/18 12:18 Dose: 40 mg Polyethylene Glycol (Miralax) 17 gm PO DAILY [facility] Last Admin: 11/03/18 10:31 Dose: Not Given Simethicone (Mylicon Chew Tab) 120 mg PO Q8 [facility] Last Admin: 11/03/18 13:27 Dose: 120 mg - Labs Labs: 10/30/18 18:55 11/03/18 06:00 - Constitutional Appears: Non-toxic, No Acute Distress, Chronically Ill - Head Exam Head Exam: ATRAUMATIC, NORMOCEPHALIC - Eye Exam Eye Exam: EOMI, PERRL Pupil Exam: NORMAL ACCOMODATION, PERRL - ENT Exam ENT Exam: Mucous Membranes Moist, Normal External Ear Exam, TM's Normal Bilaterally - Neck Exam Neck Exam: Full ROM, Normal Inspection - Respiratory Exam Respiratory Exam: Clear to Ausculation Bilateral, NORMAL BREATHING PATTERN. absent: Rales, Rhonchi, Wheezes - Cardiovascular Exam Cardiovascular Exam: REGULAR RHYTHM, RRR, +S1, +S2 - GI/Abdominal Exam GI & Abdominal Exam: Soft, Normal Bowel Sounds. absent: Distended, Tenderness - Extremities Exam Extremities Exam: Full ROM, Normal Inspection - Neurological Exam Neurological Exam: Alert, Awake, CN II-XII Intact, Oriented x3 - Psychiatric Exam Psychiatric exam: Normal Affect, Normal Mood - Skin Skin Exam: Intact, Normal Color Assessment and Plan - Assessment and Plan (Free Text) Assessment: 38 yo male with recent treatment for Influenza with Tamiflu and was on Levaquin for pneumonia (day 4 of treatment). Came [place] [facility] [place] and SOB. Started on Rocephin and Azithromycin for treatment. Check procalcitonin values. Supportive care. Chest X-ray reviewed showing a right lower lobe pneumonia. Patient feels only slightly better. Continue on Rocephin and Azithromycin. Of note, the procalcitonin was less than 0.05 which argues against a pneumonia. A pulmonary evaluation may be helpful. He appears to be improving. Thank you for allowing me to participate in the care of the patient, we will follow with you.
[2018-11-04] MEDS: guaiFENesin DM 200 mg-20 mg/10 ml UD PO PRN ×2 (02:51→21:08)
[2018-11-04] MEDS: Levalbuterol 0.63 MG/3 ML Inhal Soln UD IH PRN (03:02)
[2018-11-04] MEDS: Simethicone 80 mg Chewtab PO SCH ×3 (06:15→21:06)
[2018-11-04] MEDS: MethylPREDNISolone 40 mg Vial IVP SCH ×3 (06:16→21:07)
[2018-11-04 06:57] LABS: HEMOGLOBIN 14.7 g/dL (14.0-18.0)
[2018-11-04 07:14] LABS: BLOOD UREA NITROGEN 20 mg/dL (7-21); CALCIUM 9.3 mg/dL (8.4-10.5); GFR NON-AFRICAN AMERICAN > 60
[2018-11-04] MEDS: Levalbuterol 0.63 MG/3 ML Inhal Soln UD IH SCH ×3 (08:02→20:30)
[2018-11-04] MEDS: Pantoprazole 40 mg EC Tab PO SCH ×2 (08:18→17:05)
--- NOTE | 2018-11-04 10:30 | RAD ---
Date of service: 11/04/2018 HISTORY: fup of rll infiltrate COMPARISON: 10/30/2018 TECHNIQUE: Chest PA and lateral FINDINGS: LUNGS: No active pulmonary disease. PLEURA: No significant pleural effusion identified. No pneumothorax apparent. CARDIOVASCULAR: No aortic atherosclerotic calcification present. Normal cardiac size. No pulmonary vascular congestion. OSSEOUS STRUCTURES: No significant abnormalities. VISUALIZED UPPER ABDOMEN: Normal. OTHER FINDINGS: None. IMPRESSION: No active disease.
[2018-11-04] MEDS: POLYETHYLENE GLYCOL 3350 17 GM/Dose PACKET PO SCH (10:31)
[2018-11-04] MEDS ORDERED: Alum-Mag Hydrox-Simethicone Susp (30 mL) PO STA (10:44)
[2018-11-04] MEDS: cefTRIAXone 1 gm 1 GM/100 ML BAG IVPB SCH (10:55)
--- NOTE | 2018-11-04 16:46 | CP.PCM.PN ---
Subjective - Date & Time of Evaluation Date of Evaluation: 11/04/18 Time of Evaluation: 15:00 - Subjective Subjective: Infectious Disease Follow Up: November 04, 2018 38 yo male with PMHx of HTN presenting with cough and SOB as well as chest tightness. The patient recently completed Tamiflu course and had taken 4 days of Levaquin. There is no leukocytosis. He has been afebrile. Chest X-ray in the right lower lobe likely pneumonia. However, the repeat Chest X-ray is showing no active disease. Feeling better. Ambulating without issues. Supportive care. He is still complaining of that he still doesn't feel "right" Awaiting PFTs to be done. Objective - Vital Signs/Intake and Output Vital Signs (last 24 hours): Temp Pulse Resp BP Pulse Ox 98.6 F 67 18 165/91 H 98 11/04/18 14:00 11/04/18 14:00 11/04/18 14:00 11/04/18 14:00 11/04/18 14:00 Intake and Output: 11/04/18 11/04/18 06:59 18:59 Intake Total 620 Output Total 3 Balance 617 - Medications Medications: Current Medications Acetaminophen (Tylenol 325mg Tab) 650 mg PO Q6H PRN PRN Reason: Fever >100.4 F Arformoterol Tartrate (Brovana) 15 mcg IH [id number] [facility] Azithromycin (Zithromax) 500 mg PO DAILY [facility] Last Admin: 11/04/18 10:54 Dose: 500 mg Benzonatate (Tessalon Perles) 100 mg PO TID [facility] Last Admin: 11/04/18 13:20 Dose: 100 mg Budesonide (Pulmicort Respules) 0.5 mg IH [id number] [facility] Guaifenesin/Dextromethorphan (Robitussin Dm) 10 ml PO Q4H PRN PRN Reason: Cough Last Admin: 11/04/18 02:51 Dose: 10 ml Ceftriaxone Sodium (Rocephin 1 Gram Ivpb) 1 gm in 100 mls @ 100 mls/hr IVPB DAILY [facility]; Protocol Stop: 11/07/18 10:59 Last Admin: 11/04/18 10:55 Dose: 100 mls/hr Dextrose/Sodium Chloride (Dextrose 5%/0.45% Ns 1000 Ml) 1,000 mls @ 40 mls/hr IV .Q24H [facility] Last Admin: 11/03/18 04:42 Dose: 40 mls/hr Levalbuterol HCl (Xopenex) 0.63 mg IH TIDRESP [facility] Last Admin: 11/04/18 13:50 Dose: 0.63 mg Levalbuterol HCl (Xopenex) 0.63 mg IH [id number] PRN PRN Reason: Shortness of Breath Last Admin: 11/04/18 03:02 Dose: 0.63 mg Methylprednisolone (Solu-Medrol) 40 mg IVP Q8H [facility] Last Admin: 11/04/18 13:20 Dose: 40 mg Ondansetron HCl (Zofran Inj) 4 mg IVP Q6H PRN PRN Reason: Nausea/Vomiting Pantoprazole Sodium (Protonix Ec Tab) 40 mg PO ACBD [facility] Polyethylene Glycol (Miralax) 17 gm PO DAILY [facility] Last Admin: 11/04/18 10:31 Dose: Not Given Simethicone (Mylicon Chew Tab) 120 mg PO Q8 [facility] Last Admin: 11/04/18 13:20 Dose: 120 mg - Labs Labs: 11/04/18 06:20 11/04/18 06:20 - Constitutional Appears: Non-toxic, No Acute Distress, Chronically Ill - Head Exam Head Exam: ATRAUMATIC, NORMOCEPHALIC - Eye Exam Eye Exam: EOMI, PERRL Pupil Exam: NORMAL ACCOMODATION, PERRL - ENT Exam ENT Exam: Mucous Membranes Moist, Normal External Ear Exam, TM's Normal Bilaterally - Neck Exam Neck Exam: Full ROM, Normal Inspection - Respiratory Exam Respiratory Exam: Clear to Ausculation Bilateral, NORMAL BREATHING PATTERN. absent: Rales, Rhonchi, Wheezes - Cardiovascular Exam Cardiovascular Exam: REGULAR RHYTHM, RRR, +S1, +S2 - GI/Abdominal Exam GI & Abdominal Exam: Soft, Normal Bowel Sounds. absent: Distended, Tenderness - Extremities Exam Extremities Exam: Full ROM, Normal Inspection - Neurological Exam Neurological Exam: Alert, Awake, CN II-XII Intact, Oriented x3 - Psychiatric Exam Psychiatric exam: Normal Affect, Normal Mood - Skin Skin Exam: Intact, Normal Color Assessment and Plan - Assessment and Plan (Free Text) Assessment: 38 yo male with recent treatment for Influenza with Tamiflu and was on Levaquin for pneumonia (day 4 of treatment). Came to [facility] for worsening cough and SOB. Started on Rocephin and Azithromycin for treatment. Check procalcitonin values. Supportive care. Chest X-ray reviewed showing a right lower lobe pneumonia. Patient feels only slightly better. Continue on Rocephin and Azithromycin. Of note, the procalcitonin was less than 0.05 which argues against a pneumonia. A pulmonary evaluation may be helpful. He appears to be improving. Repeat Chest X-ray showed no active disease. Thank you for allowing me to participate in the care of the patient, we will follow with you.
[2018-11-04] MEDS ORDERED: Arformoterol 15 mcg/2 ml Inh Sol IH SCH (20:00)
[2018-11-04] MEDS: Budesonide 0.5 mg/2 ml Inhal Susp UD IH SCH (20:30)
[2018-11-04] MEDS: Arformoterol 15 mcg/2 ml Inh Sol IH SCH (20:30)
[2018-11-05] MEDS: Levalbuterol 0.63 MG/3 ML Inhal Soln UD IH SCH ×3 (07:51→19:59)
[2018-11-05] MEDS: Budesonide 0.5 mg/2 ml Inhal Susp UD IH SCH ×2 (07:51→19:57)
[2018-11-05] MEDS: Arformoterol 15 mcg/2 ml Inh Sol IH SCH ×2 (07:51→19:57)
[2018-11-05] MEDS: MethylPREDNISolone 40 mg Vial IVP SCH ×3 (09:20→22:36)
[2018-11-05] MEDS: POLYETHYLENE GLYCOL 3350 17 GM/Dose PACKET PO SCH (09:21)
[2018-11-05] MEDS: Simethicone 80 mg Chewtab PO SCH ×3 (09:21→22:35)
[2018-11-05] MEDS: cefTRIAXone 1 gm 1 GM/100 ML BAG IVPB SCH (09:21)
[2018-11-05] MEDS: Pantoprazole 40 mg EC Tab PO SCH ×2 (09:22→17:29)
[2018-11-05] MEDS ORDERED: MethylPREDNISolone 40 mg Vial IVP SCH (12:23)
--- NOTE | 2018-11-05 12:24 | PN ---
DATE: 11/04/2018 SUBJECTIVE: This 38-year-old male was seen at his bedside in the presence of his son and the case was reviewed in detail with his nurse, Meredith Wiggins, registered nurse. The patient was out of bed to chair. He denied any fever, chills, chest pain or shortness of breath. He remains anxious but states he does feel better and is able to ambulate without shortness of breath. PHYSICAL EXAMINATION: VITAL SIGNS: His temperature revealed temperature of 98.5, respirations 20, pulse 72 and blood pressure 125/80 with a pulse ox of 96% room air. HEENT: Head: Normocephalic. Eyes no icterus. NECK: Supple. HEART: S1, S2. LUNGS: With rhonchi at the right posterior base and expiratory wheezing that cleared with coughing. ABDOMEN: Soft. EXTREMITIES: No edema. SKIN: Without rash. NEUROLOGICAL: Intact. PSYCHOLOGICAL: Anxiety. VASCULAR: Legs warm to touch. LABORATORY DATA: Hemoglobin 14.7, hematocrit 43.6. Sodium 139, K 4.3, chloride 104, bicarb 28, BUN 20, creatinine 1.0, random blood sugar 103 with a calcium of 9.3. Hepatitis ABC serologies were negative. Procalcitonin level was less than 0.05. Chest x-ray was completed earlier this morning and reviewed with Dr. Jose Luis Rahman. He currently shows no active disease and no infiltrates as previously seen at the base of his right lung. IMPRESSION: A 38-year-old male with community-acquired right lower lung pneumonia with exacerbation of chronic obstructive pulmonary disease and history of asthmatic bronchitis in his past with obesity, history of chronic hypertension, peptic ulcer disease with gastroesophageal reflux disease and anxiety. PLAN: My plans are to continue Brovana inhalational therapy, MiraLax, Mylicon, p.r.n. gas, Protonix a.c. breakfast and dinner, Pulmicort inhalational therapy, Robitussin DM, Rocephin, IV Zithromax p.o., Solu-Medrol 40 mg IV every 8 hours, Tessalon Perles 100 p.o. 3 times daily and Xopenex inhalational therapy. Based on his clinical progress, disposition planning will be entertained. The patient is aware that he will require pulmonary function testing as an outpatient and will require steroid taper as clinical condition allows. All of the above was reviewed in detail with the patient and nursing. All questions were answered. Pricilla Bravo MD [facility]
--- NOTE | 2018-11-05 15:26 | PN ---
DATE: 11/05/2018 SUBJECTIVE: This 38-year-old male was examined at bedside in the presence of his and case was reviewed with nurse, Karen Mccloud, registered nurse. The patient was out of bed to chair. He states he was feeling better today. He had no reported fever or chills and there were no reports of hemoptysis. PHYSICAL EXAMINATION: VITAL SIGNS: Temperature was 98.2, respirations 20, pulse 74, blood pressure 121/75. Pulse ox 96% room air. HEAD: Normocephalic, atraumatic. EYES: No icterus. NECK: Supple. HEART: S1, S2 regular. LUNGS: With occasional rhonchi that cleared with coughing. ABDOMEN: Soft. EXTREMITIES: No edema. SKIN: Without rash. NEUROLOGIC: Intact. PSYCHOLOGIC: Alert. VASCULAR: Legs warm to touch. LABORATORY DATA: Hemoglobin 14.7, hematocrit 43.6. Sodium 139, K 4.3, chloride 104, bicarb 28, BUN 20, creatinine 1, random blood sugar 103 with a calcium of 9.3. IMPRESSION: A 38-year-old male whose chest x-ray I reviewed from 11/04/2018. It now shows clearing of his right lower lung infiltrate. Impression is a 38-year-old male with community-acquired pneumonia, exacerbation of chronic obstructive pulmonary disease with history of asthmatic bronchitis, obesity, hypertension, peptic ulcer disease with gastroesophageal reflux disease. PLANS: Are to continue Brovana inhalational therapy, MiraLax, Mylicon chews, Protonix, Pulmicort inhalational therapy, Robitussin DM, Rocephin IV every 24, Zithromax p.o., Tessalon Perles, Xopenex inhalational therapy and p.r.n. Tylenol. If the patient is without wheezing and clinically stable in the a.m., he will be discharged to home. I will lower his IV Solu-Medrol to 20 mg IV every eight in preparation for switching the patient to a Medrol Dosepak upon discharge. All of the above was discussed with the patient and his at bedside. All questions were answered. Pricilla Bravo MD
--- NOTE | 2018-11-05 15:56 | CP.PCM.PN ---
Subjective - Date & Time of Evaluation Date of Evaluation: 11/05/18 Time of Evaluation: 14:00 - Subjective Subjective: Infectious Disease Follow Up: November 05, 2018 38 yo male with PMHx of HTN presenting with cough and SOB as well as chest tightness. The patient recently completed Tamiflu course and had taken 4 days of Levaquin. There is no leukocytosis. He has been afebrile. Chest X-ray in the right lower lobe likely pneumonia. However, the repeat Chest X-ray is showing no active disease. Feeling better. Ambulating without issues. Supportive care. He is still complaining of that he still doesn't feel "right", but he is a very anxious personality. Awaiting PFTs to be done. Objective - Vital Signs/Intake and Output Vital Signs (last 24 hours): Temp Pulse Resp BP Pulse Ox 97.8 F 63 20 147/94 H 99 11/05/18 14:00 11/05/18 14:00 11/05/18 14:00 11/05/18 14:00 11/05/18 14:00 Intake and Output: 11/05/18 11/05/18 06:59 18:59 Intake Total 620 Balance 620 - Medications Medications: Current Medications Acetaminophen (Tylenol 325mg Tab) 650 mg PO Q6H PRN PRN Reason: Fever >100.4 F Arformoterol Tartrate (Brovana) 15 mcg [facility] [id number] [facility] Last Admin: 11/05/18 07:51 Dose: 15 mcg Azithromycin (Zithromax) 500 mg PO DAILY [facility] Last Admin: 11/05/18 09:22 Dose: 500 mg Benzonatate (Tessalon Perles) 100 mg PO TID [facility] Last Admin: 11/05/18 14:58 Dose: 100 mg Budesonide (Pulmicort Respules) 0.5 mg IH [id number] [facility] Last Admin: 11/05/18 07:51 Dose: 0.5 mg Cefpodoxime Proxetil (Vantin) 200 mg PO Q12 [facility] Guaifenesin/Dextromethorphan (Robitussin Dm) 10 ml PO Q4H PRN PRN Reason: Cough Last Admin: 11/04/18 21:08 Dose: 10 ml Levalbuterol HCl (Xopenex) 0.63 mg IH TIDRESP [facility] Last Admin: 11/05/18 13:24 Dose: 0.63 mg Levalbuterol HCl (Xopenex) 0.63 mg IH [id number] PRN PRN Reason: Shortness of Breath Last Admin: 11/04/18 03:02 Dose: 0.63 mg Methylprednisolone (Solu-Medrol) 20 mg IVP Q8H [facility] Last Admin: 11/05/18 14:57 Dose: 20 mg Ondansetron HCl (Zofran Inj) 4 mg IVP Q6H PRN PRN Reason: Nausea/Vomiting Pantoprazole Sodium (Protonix Ec Tab) 40 mg PO ACBD [facility] Last Admin: 11/05/18 09:22 Dose: 40 mg Polyethylene Glycol (Miralax) 17 gm PO DAILY [facility] Last Admin: 11/05/18 09:21 Dose: 17 gm Simethicone (Mylicon Chew Tab) 120 mg PO Q8 [facility] Last Admin: 11/05/18 14:58 Dose: 120 mg - Labs Labs: 11/04/18 06:20 11/04/18 06:20 - Constitutional Appears: Non-toxic, No Acute Distress, Chronically Ill - Head Exam Head Exam: ATRAUMATIC, NORMOCEPHALIC - Eye Exam Eye Exam: EOMI, PERRL Pupil Exam: NORMAL ACCOMODATION, PERRL - ENT Exam ENT Exam: Mucous Membranes Moist, Normal External Ear Exam, TM's Normal Bilaterally - Neck Exam Neck Exam: Full ROM, Normal Inspection - Respiratory Exam Respiratory Exam: Clear to Ausculation Bilateral, NORMAL BREATHING PATTERN. absent: Rales, Rhonchi, Wheezes - Cardiovascular Exam Cardiovascular Exam: REGULAR RHYTHM, RRR, +S1, +S2 - GI/Abdominal Exam GI & Abdominal Exam: Soft, Normal Bowel Sounds. absent: Distended, Tenderness - Extremities Exam Extremities Exam: Full ROM, Normal Inspection - Neurological Exam Neurological Exam: Alert, Awake, CN II-XII Intact, Oriented x3 - Psychiatric Exam Psychiatric exam: Normal Affect, Normal Mood - Skin Skin Exam: Intact, Normal Color Assessment and Plan - Assessment and Plan (Free Text) Assessment: 38 yo male with recent treatment for Influenza with Tamiflu and was on Levaquin for pneumonia (day 4 of treatment). Came to [facility] for worsening cough and SOB. Started on Rocephin and Azithromycin for treatment. Check procalcitonin values. Supportive care. Chest X-ray reviewed showing a right lower lobe pneumonia. Patient feels only slightly better. Continue on Rocephin and Azithromycin. Of note, the procalcitonin was less than 0.05 which argues against a pneumonia. A pulmonary evaluation may be helpful. He appears to be improving. Repeat Chest X-ray showed no active disease. He may have some component of Asthma as well. Thank you for allowing me to participate in the care of the patient, we will follow with you.
[2018-11-06] MEDS: Simethicone 80 mg Chewtab PO SCH (06:22)
[2018-11-06] MEDS: MethylPREDNISolone 40 mg Vial IVP SCH (06:22)
[2018-11-06] MEDS: Levalbuterol 0.63 MG/3 ML Inhal Soln UD IH SCH ×2 (07:58→14:02)
[2018-11-06] MEDS: Arformoterol 15 mcg/2 ml Inh Sol IH SCH (07:58)
[2018-11-06] MEDS: Budesonide 0.5 mg/2 ml Inhal Susp UD IH SCH (07:58)
[2018-11-06 08:34] VITALS: BP 142/88; PULSE 63; RESP 17; TEMP 98.3; O2SAT 95
[2018-11-06] MEDS: POLYETHYLENE GLYCOL 3350 17 GM/Dose PACKET PO SCH (10:00)
[2018-11-06] MEDS ORDERED: Cefpodoxime (Vantin) 200 mg Tab PO SCH (10:00)
[2018-11-06] MEDS: Pantoprazole 40 mg EC Tab PO SCH (10:03)
[2018-11-06] MEDS ORDERED: Pneumococcal 23-Valent Vaccine IM ONE (13:06)
[2018-11-06] MEDS ORDERED: Influenza Vaccine 60 mcg/0.5 mL SYR (4YR UP) IM ONE (13:06)
--- NOTE | 2018-11-06 17:22 | CP.PCM.PN ---
Subjective - Date & Time of Evaluation Date of Evaluation: 11/06/18 Time of Evaluation: 13:30 - Subjective Subjective: Infectious Disease Follow Up: November 06, 2018 38 yo male with PMHx of HTN presenting with cough and SOB as well as chest tightness. The patient recently completed Tamiflu course and had taken 4 days of Levaquin. There is no leukocytosis. He has been afebrile. Chest X-ray in the right lower lobe likely pneumonia. However, the repeat Chest X-ray is showing no active disease. Feeling better. Ambulating without issues. Supportive care. He is still complaining of that he still doesn't feel "right", but he is a very anxious personality. Overall doing better. Will have PFTs done as an outpatient. Objective - Vital Signs/Intake and Output Vital Signs (last 24 hours): Temp Pulse Resp BP Pulse Ox 98.3 F 63 17 142/88 95 11/06/18 06:00 11/06/18 06:00 11/06/18 06:00 11/06/18 06:00 11/06/18 06:00 Intake and Output: 11/06/18 11/06/18 06:59 18:59 Intake Total 480 Balance 480 - Labs Labs: 11/04/18 06:20 11/04/18 06:20 - Constitutional Appears: Non-toxic, No Acute Distress, Chronically Ill - Head Exam Head Exam: ATRAUMATIC, NORMOCEPHALIC - Eye Exam Eye Exam: EOMI, PERRL Pupil Exam: NORMAL ACCOMODATION, PERRL - ENT Exam ENT Exam: Mucous Membranes Moist, Normal External Ear Exam, TM's Normal Bilaterally - Neck Exam Neck Exam: Full ROM, Normal Inspection - Respiratory Exam Respiratory Exam: Clear to Ausculation Bilateral, NORMAL BREATHING PATTERN. absent: Rales, Rhonchi, Wheezes - Cardiovascular Exam Cardiovascular Exam: REGULAR RHYTHM, RRR, +S1, +S2 - GI/Abdominal Exam GI & Abdominal Exam: Soft, Normal Bowel Sounds. absent: Distended, Tenderness - Extremities Exam Extremities Exam: Full ROM, Normal Inspection - Neurological Exam Neurological Exam: Alert, Awake, CN II-XII Intact, Oriented x3 - Psychiatric Exam Psychiatric exam: Normal Affect, Normal Mood - Skin Skin Exam: Intact, Normal Color Assessment and Plan - Assessment and Plan (Free Text) Assessment: 38 yo male with recent treatment for Influenza with Tamiflu and was on Levaquin for pneumonia (day 4 of treatment). Came to [facility] for worsening cough and SOB. Started on Rocephin and Azithromycin for treatment. Check procalcitonin values. Supportive care. Chest X-ray reviewed showing a right lower lobe pneumonia. Patient feels only slightly better. Continue on Rocephin and Azithromycin. Of note, the procalcitonin was less than 0.05 which argues against a pneumonia. A pulmonary evaluation may be helpful. He appears to be improving. Repeat Chest X-ray showed no active disease. He may have some component of Asthma as well that might be exacerbated by work conditions. History of positive PPD. Informed patient to check with his workplace first on their procedures (He works in a [employer] facility) and if okay with work, I can treat as outpatient. Thank you for allowing me to participate in the care of the patient, we will follow with you.
--- NOTE | 2018-11-08 09:06 | DS ---
FINAL DIAGNOSES: Right lower lung pneumonia, resolved, chronic obstructive pulmonary disease, obesity, fatty liver, diet-controlled hypertension and anxiety. DISPOSITION: Home. OPAL POLISHER: Dr. Yung blackmon from Infectious Disease. DISCHARGE MEDICATIONS: Keflex 500 mg p.o. b.i.d. #14, Tessalon Perles 100 mg p.o. t.i.d., Advair 500/50 one puff b.i.d., Medrol Dosepak as directed, and Robitussin DM 5 mL p.o. every 6 hours p.r.n. cough. Follow up in my office on November and the patient was given pneumonia and influenza vaccine prior to discharge. The patient was advised to 2 g sodium, heart-healthy diet. SUMMARY: This 38-year-old male was admitted to [facility] with cough, congestion and clinical and radiographic evidence of right lower lung pneumonia. He was evaluated by Dr. Yung mckeon from Infectious Disease and was treated with parenteral antibiotics and pulmonary toiletry with good result. PHYSICAL EXAMINATION: VITAL SIGNS: At the time of discharge, temperature was 98.3, respirations 17, pulse 63 and blood pressure 142/88 with a pulse ox of 95% on room air. DISCHARGE LABS: Showed hemoglobin 14.7 and hematocrit 43.6. Sodium 139, K 4.3, chloride 104, bicarb 28, BUN 20, creatinine 1.0, random blood sugar 103 and calcium 9.3. Procalcitonin level less than 0.05. Hepatitis A, B and C serologies negative. AST 65, ALT 81, alk phos normal 116 and bilirubin 0.5. Abdominal ultrasound was consistent with fatty liver. The were no hepatic masses. There were no intrahepatic bile duct dilatation. Gallbladder showed no stones and otherwise it was unremarkable on ultrasound. A chest x-ray dated 11/04/[address] Jose Luis Rahman from Radiology and showed no pneumonia and resolution of his right lower lung pneumonia. The patient is discharged to home. He has been advised to follow up in my office and with Dr. Yung Blackmon from Infectious Disease and will be cleared for return to work based on outpatient followup. The patient was also a advised, he will need a weight reduction diet and monitoring of his blood pressure and possibly the implementation of oral antihypertensives. Greater than 35 minutes was spent in his discharge management. All of this was reviewed with his at bedside and nurse Karen Mccloud. All questions were answered. Pricilla Bravo MD [facility]
== END 2018-11-06 14:11 | disposition home or self-care (01) | DRG 194 ==
LOC: ED 18:16 → ERH 20:30 → 5RNO 23:01
PROVIDERS: ADMIT Internal Medicine; ATTEND Internal Medicine
PROC: 3E02340 Introduction of Influenza Vaccine into Muscle, Percutaneous Approach (ICD-10-PCS; principal; 2018-11-06)
PROC: 3E0234Z Introduction of Serum, Toxoid and Vaccine into Muscle, Percutaneous Approach (ICD-10-PCS; 2018-11-06)
DX: J18.1 Lobar pneumonia, unspecified organism (principal); J44.1 Chronic obstructive pulmonary disease with (acute) exacerbation; J44.0 Chronic obstructive pulmonary disease with (acute) lower respiratory infection; F17.210 Nicotine dependence, cigarettes, uncomplicated; I10 Essential (primary) hypertension; K21.9 Gastro-esophageal reflux disease without esophagitis; K27.9 Peptic ulcer, site unspecified, unspecified as acute or chronic, without hemorrhage or perforation; K76.0 Fatty (change of) liver, not elsewhere classified; K59.00 Constipation, unspecified; F41.9 Anxiety disorder, unspecified; R76.11 Nonspecific reaction to tuberculin skin test without active tuberculosis; E66.9 Obesity, unspecified; Z68.32 Body mass index [BMI] 32.0-32.9, adult; Z23 Encounter for immunization